=== PATIENT | male | born 1990 | race American Indian/Alaskan Native ===

== ENCOUNTER 2019-12-20 07:16 | Day surgery (SDC) | payer BC ==
[2019-12-20] MEDS ORDERED: LACTATED RINGERS 1,000 ML ONE (07:53)
[2019-12-20] MEDS ORDERED: MIDAZOLAM 2 MG/2 ML INJ IV NR (08:30)
[2019-12-20] MEDS ORDERED: LACTATED RINGERS 1,000 ML IV SCH (08:30)
--- NOTE | 2019-12-20 08:42 | Anesthesia Day of Surgery ---
Anesthesia Day of Surgery - Day of Surgery Patient Examined: Yes Patient H&P Reviewed: Yes Patient is NPO: Yes
--- NOTE | 2019-12-20 08:43 | Anesthesia Consultation ---
Anesthesia Consult and Med Hx Date of service: 12/20/19 - Airway Anesthetic Teeth Evaluation: Good (BRACES) ROM Head & Neck: Adequate Mental/Hyoid Distance: Adequate Mallampati Class: Class I Intubation Access Assessment: Good - Pre-Operative Health Status ASA Pre-Surgery Classification: ASA2 Proposed Anesthetic Plan: General - Pulmonary Hx Smoking: No Hx Asthma: Yes (NO INHALER FOR 1 YR) COPD: No Hx Pneumonia: No Hx Sleep Apnea: No (DALE PRE SCREEN LOW RISK.) - Cardiovascular System Hx Hypertension: No Hx Heart Attack/AMI: No Hx Pacemaker: No Hx Internal Defibrillator: No Hx Heart Murmur: No - Central Nervous System Hx Seizures: No Hx Back Pain: No Hx Psychiatric Problems: No - Gastrointestinal Hx Ulcer: No - Endocrine Hx End Stage Renal Disease: No Hx Cirrhosis: No Hx Liver Disease: No - Hematic Hx Anemia: No Hx Sickle Cell Disease: No (TRAIT) - Other Systems Hx Alcohol Use: No Hx Substance Use: No Hx Cancer: No
[2019-12-20] MEDS ORDERED: ONDANSETRON 4 MG/2 ML INJ IV PRN (09:00)
[2019-12-20] MEDS ORDERED: ACETAMINOPHEN 500 MG TAB PO SCH (09:00)
[2019-12-20] MEDS ORDERED: MAGNESIUM OXIDE 400 MG TAB PO SCH (09:00)
[2019-12-20] MEDS ORDERED: GABAPENTIN 300 MG CAP PO NR (09:00)
[2019-12-20] MEDS ORDERED: HYDROmorphone 1 MG/1 ML INJ IV PRN ×2 (09:00)
[2019-12-20] MEDS ORDERED: CELECOXIB 200 MG CAP PO NR (09:00)
[2019-12-20] MEDS ORDERED: BUPIVACAINE/PF (0.25%) 2.5 MG/ML 30 ML VIAL INFILTRATI ONE (09:41)
[2019-12-20] MEDS ORDERED: dexAMETHasone 20 MG/5 ML VIAL ONE (09:51)
[2019-12-20] MEDS ORDERED: PHENYLEPHRINE/NS 1,000 MCG/10 ML SYRINGE (OR USE) IV ONE (09:51)
[2019-12-20] MEDS ORDERED: LIDOCAINE MPF (2%) 20 MG/1 ML VIAL 5 ML ONE (09:51)
[2019-12-20] MEDS ORDERED: ONDANSETRON 4 MG/2 ML INJ ONE (09:51)
[2019-12-20] MEDS ORDERED: propofoL 200 MG/20 ML VIAL IV ONE (09:52)
[2019-12-20] MEDS ORDERED: fentaNYL 100 MCG/2 ML INJ ONE (09:52)
[2019-12-20] MEDS ORDERED: SODIUM CHLORIDE 0.9% IRR 1,500 ML BOTTLE IR ONE (10:33)
--- NOTE | 2019-12-20 10:47 | Short Stay Summary ---
Short Stay Documentation Date of service: 12/20/19 - History H&P: obtained from office - Allergies and Medications Current Medications: Allergies No Known Allergies Allergy (Verified 12/15/19 11:45) Home Medications Medication Instructions Recorded Confirmed Last Taken Type No Known Home Medications [No 12/14/19 12/20/19 Unknown History Reported Home Medications] Active Medications Acetaminophen (Tylenol) 1,000 mg PO ONCE WALTER Stop: 12/20/19 21:00 Last Admin: 12/20/19 09:15 Dose: 1,000 mg Documented by: Celecoxib (Celebrex) 400 mg PO PREOP NR Stop: 12/20/19 21:00 Last Admin: 12/20/19 09:15 Dose: 400 mg Documented by: Gabapentin (Gabapentin) 300 mg PO PREOP NR Stop: 12/20/19 21:00 Last Admin: 12/20/19 09:15 Dose: 300 mg Documented by: Hydromorphone HCl (Dilaudid) 0.25 mg IV Q10MIN PRN PRN Reason: Pain, Moderate (4-6) Stop: 12/20/19 16:00 Hydromorphone HCl (Dilaudid) 0.5 mg IV Q10MIN PRN PRN Reason: Pain , Severe (7-10) Stop: 12/20/19 16:00 Lactated Ringer's (Lactated Ringers) 1,000 mls @ 100 mls/hr IV DIRECT WALTER Last Admin: 12/20/19 08:15 Dose: 100 mls/hr Documented by: Magnesium Oxide (Mag-Ox) 400 mg PO ONCE WALTER Stop: 12/20/19 21:00 Last Admin: 12/20/19 09:15 Dose: 400 mg Documented by: Ondansetron HCl (Zofran) 4 mg IV ONCE PRN PRN Reason: Nausea And Vomiting Stop: 12/20/19 19:00 - Brief post op/procedure progress note Date of procedure: 12/20/19 Pre-op diagnosis: phimosis Post-op diagnosis: same Procedure: circ Anesthesia: GETA Surgeon: ARVIND MORRISON Estimated blood loss: minimal Pathology: none Specimen disposition: to lab Condition: stable - Hospital course Hospital course: norco on chart - Disposition Condition at discharge: Stable Disposition: DC- TO HOME OR SELFCARE Short Stay Discharge Plan Follow up with: SHUBHAM BUSTAMANTE [Other] - 7 Days
[2019-12-20] MEDS ORDERED: HYDROcodone/ACETAMINOPHEN 5-325 MG TAB ONE (11:19)
--- NOTE | 2019-12-20 11:53 | Operative Report ---
PREOPERATIVE DIAGNOSIS: Phimosis. POSTOPERATIVE DIAGNOSIS: Phimosis. PROCEDURE: Circumcision. SURGEON: Carlos Alberto Morris MD ANESTHESIA: General. ESTIMATED BLOOD LOSS: Minimal. FLUIDS: Crystalloid. COMPLICATIONS: No complications. INDICATIONS: This patient is a 29-year-old gentleman seen in the office with phimotic foreskin on exam for several months. Discussed options. He agreed to proceed with surgical intervention. Risks, benefits, and complications were explained. DESCRIPTION OF PROCEDURE: The patient was taken to the operative suite, placed in a supine position. After adequate general anesthesia, he was prepped and draped in a sterile fashion. Foreskin was marked at the level of the coronal ridge. Dorsal and ventral slit was made. Foreskin was circumferentially removed and sent for routine pathologic evaluation. Shaft skin was retracted proximally. Adequate hemostasis was achieved. Proximal and distal skin was reapproximated and sutured with 3-0 chromic in interrupted fashion. Adequate hemostasis was achieved. Xeroform gauze was placed around the incision followed by Rolf. The patient tolerated the procedure well and was extubated and taken to recovery room. He will go home on Imogene and follow up in the office. JOB# [id number] LESIA/JED
--- NOTE | 2019-12-20 12:20 | Post Anesthesia Evaluation ---
- Post Anesthesia Evaluation Patient Participated: Yes Airway Patent: Yes Stable Respiratory Function: Yes Nausea/Vomiting: No Temp > 96.8F: Yes Pain Manageable: Yes Adequeate Hydration: Yes Anesthesia Complications: No Block Receding Appropriately: Not Applicable Patient on Ventilator: No
[2019-12-20] MEDS ORDERED: HYDROcodone/ACETAMINOPHEN 5-325 MG TAB PO PRN (13:00)
[2019-12-20 20:44] VITALS: BP 112/62
== END 2019-12-20 07:17 | disposition home or self-care (01) ==
LOC: OR 07:16
PROVIDERS: ATTEND Urology
DX: N47.1 Phimosis (principal); J45.909 Unspecified asthma, uncomplicated; K21.9 Gastro-esophageal reflux disease without esophagitis; Z98.890 Other specified postprocedural states
CPT/HCPCS: 54161; 88304; J1100; J1170; J2370; J2405; J2704; J3010; J7120